=== PATIENT | female | born 1980 | race Caucasian/White ===

== ENCOUNTER 2021-01-22 10:50 | Outpatient (REF) | payer OTHER, SELFPAY ==
--- NOTE | ~2021-01-22 | XR_ITS ---
EXAMINATION: XR CHEST CLINICAL INFORMATION: Cough COMPARISON: None TECHNIQUE: 2 views of the chest were obtained. FINDINGS: No significant abnormality is noted involving the heart, lungs, mediastinum, bony thorax or soft tissues. XR/XR chest 2V IMPRESSION: Unremarkable examination.
== END 2021-01-22 10:51 | disposition home or self-care (01) ==
LOC: HO.HMGCX 10:50
PROVIDERS: Visit Provider Nurse Practitioner Family
DX: Z13.89 Encounter for screening for other disorder (principal)
CPT/HCPCS: 71046

== ENCOUNTER 2024-02-12 12:25 | Outpatient (AMB) | payer OTHER, SELFPAY ==
--- NOTE | 2024-02-12 12:26 | MHC.OFFWIV ---
Intake Vital Signs 02/12/24 12:29 Weight 136 lb BP 112/70 Blood Pressure Location Lt brachial Position Sitting Pulse 70 Pulse Source Pulse Oximeter Pulse Oximetry (%) 100 Oxygen Delivery Method Room Air Intake Visit Reasons: Swollen eye and red Intake Note: Patient here for swollen right eye since yesterday, she mentioned she woke up w/eye sealed shut and has discharge Patient Tobacco Use Status: Never used Tobacco Allergies No Known Allergies Allergy (Verified 02/12/24 12:31) Do you need a note to return to daycare/school/sports/work: No HPI Swollen eye and red HPI Details This note is constructed using voice recognition software. While every effort has been made to ensure accuracy, van owner operator errors may have been included. The patient is a 43 year old female who presents to the clinic today with bilateral, right more than left eye irritation, discharge, and eyelid swelling. She denies any difficulty with vision. She denies fever, chills, cough, shortness of breath. Her child did have an eye infection last week, and she did try using some of her child eyedrops but that did not seem to help. She does not wear contacts. [facility] Social History Patient Tobacco Use Status: Never used Tobacco Review of Systems Const All systems reviewed & are unremarkable except as noted in HPI and below Physical Exam Vital Signs: Last Vital Signs Pulse 70 02/12/24 12:29 BP 112/70 02/12/24 12:29 Pulse Ox 100 02/12/24 12:29 Oxygen Delivery Method Room Air 02/12/24 12:29 Const General: cooperative, healthy appearing, comfortable and no acute distress Orientation/consciousness: patient oriented x3 Limitations: no limitations HEENT Head: Yes normal to inspection Ears: hearing grossly normal bilaterally, external ears normal and TM's normal bilaterally General nose exam: Normal external nose present, Normal nares present and No nasal discharge present Face and sinus: Yes normal facial exam and Yes sinuses nontender Mouth: Normal oral and palatal mucosa present and moist mucous membranes Throat: Yes posterior oropharynx normal, Yes tonsils normal and Yes uvula midline Eyes Eyelids: Yes eyelid abnormality (slight edema upper lid on right) Conjunctivae: conjunctival abnormal right conjunctival injection and discharge purulent and left conjunctival injection EOM: EOMs intact bilaterally Neck Neck: Yes normal visual inspection Resp Effort & Inspection: normal respiratory effort, able to speak in complete sentences, Actively coughing, no respiratory distress, not tachypneic, no tripod positioning and no use of accessory muscles Auscultation: clear to auscultation bilaterally Cardio Jugular venous distension: no JVD Rate: regular rate Rhythm: regular rhythm Heart sounds: S1 normal heart sound present, S2 normal heart sound present, no click, no gallops, no murmurs and no rubs Skin General skin exam: no rashes or lesions noted, elasticity normal and turgor normal Neuro General: patient oriented x3 Extrem General: Yes normal to inspection and Yes no clubbing, cyanosis or edema Assessment & Plan Assessment & Plan (1) Conjunctivitis: Code(s): H10.9 - Unspecified conjunctivitis Qualifiers: Conjunctivitis type: acute Acute conjunctivitis type: bacterial Laterality: bilateral Qualified Code(s): H10.33 - Unspecified acute conjunctivitis, bilateral Plan: Advised good hand hygiene, avoidance of work today. Erythromycin ointment prescribed. Advised patient to follow up with any new onset visual disturbance, or worsening symptoms. Plan See above for full details and plan. Medications: New erythromycin 0.5 inches ophthalmic (eye) TID 7 days 3.5 grams 0RF Coding Level of Care Code Est Pt Level 3 (40401) Diagnoses Acute bacterial conjunctivitis of both eyes H10.33 Conjunctivitis type: acute Acute conjunctivitis type: bacterial Laterality: bilateral
[2024-02-12 12:29] VITALS: BP 112/70; PULSE 70; O2SAT 100
--- OUTSIDE RECORDS SUMMARY | 2024-02-18 06:13 | XMS_ITS | Continuity of Care Document ---
Author Organization [facility] Address Unknown Care Team Providers Care Brands Editor Name Role Phone Kaila Cordova DO Primary Care Diego gonzalez En[place] [facility] Date(s): 03/08/21 - 04/08/21 [facility] Attending Physician: Not on Staff, Attending MD Referring Physician: Kaila Cordova DO Allergies, Adverse Reactions, Alerts Substance Reaction Severity Status NKA Active Immunizations Given and Recorded Vaccine Date Status Refusal Reason tetanus/diphtheria/pertussis, acel(Tdap) 1 08/06/19 Given influenza virus vaccine, inactivated 04/12/19 Give n influenza virus vaccine, inactivated 2 04/27/07 Gi gwen 1Result Comment: Given without difficulty. Guerrero RN 2Admin Note: manufact =[employer] Medications docusate sodium 100 mg oral capsule 1 capsule = 100 mg, By Mouth, 2 times a day, # 60 capsule, 0 Refills, Maintenance, 09/25/19 12:43:00 EDT, Capsule, [id number], 155, cm, 09/25/19 10:47:00 EDT, Height, 68.6, kg, 09/21/19 18:39:00 EDT, Dry Weight Start Date: 09/25/19 Status: Ordered ferrous sulfate 325 mg oral enteric coated tablet 325 mg, 1, tablet, By Mouth, 2 times a day, # 60 tablet, Refills 3, Tot. Refills 3, Maintenance, 04/12/19 15:53:35 EDT, Route to Pharmacy Electronically, [id number], [id number] Start Date: 04/12/19 Stop Date: 2/11/20 Status: Ordered Loestrin 21 07/19 20 mcg-1 mg oral tablet 1 tablet, By Mouth, Daily, # 28 tablet, 1 Refills, Maintenance, 02/21/21 18:45:00 EDT, Tablet, [id number], Partial fill upon patient request if the prescription is for a schedule II opioid drug., 1 tablet By Mouth Daily, 152.4, cm, 02/15/21 9:... Start Date: 02/21/21 Status: Ordered Multivitamins with Folic Acid 1 mg oral capsule See Instructions, TAKE ONE DAILY BY MOUTH, # 100 tablet, 2 Refills, Maintenance, 04/16/19 16:07:13 EDT, TAKE ONE DAILY BY MOUTH Start Date: 04/16/19 Status: Ordered Problem List Condition Effective Dates Status Health Status Inform ant Elevated glucose tolerance test(Confirmed) Active Achalasia of esophagus(Confirmed) Active Anemia(Confirmed) Active Anxiety(Confirmed) Active delivery delivered 2007(Confirmed) Active Social History Social History Type Response Smoking Status Never (less than 100 in lifetime) entered on: 04/12/19 Sex Female
--- OUTSIDE RECORDS SUMMARY | 2024-02-18 06:13 | XMS_ITS | Continuity of Care Document ---
Author Organization [facility] Address [address] [place] [address]- Care Team Providers Care Marketing Teacher Name Role Phone Bailey FerrellmuraliKaila christensen DO Primary Care Diego gonzalez Encounter [facility] Date(s): 09/26/20 - 10/26/20 [facility] [address] [place] [id number] Allergies, Adverse Reactions, Alerts Substance Reaction Severity [...] Refills, Maintenance, 09/25/19 12:43:00 EDT, Capsule, [id number], 155, cm, 09/25/19 10:47:00 EDT, Height, 68.6, kg, 09/21/19 18:39:00 EDT, Dry Weight Start Date: 09/25/19 Status: Ordered ferrous sulfate 325 mg oral enteric coated tablet 325 mg, 1, tablet, By Mouth, 2 times a day, # 60 tablet, Refills 3, Tot. Refills 3, Maintenance, 04/12/19 15:53:35 EDT, Route to Pharmacy Electronically, [id number], [id number] Start Date: 04/12/19 Stop Date: 08/10/19 Status: Ordered Loestrin 07/19 20 mcg-1 mg oral tablet 1 tablet, By Mouth, Daily, # 28 tablet, 3 Refills, Maintenance, 09/19/20 20:26:00 EDT, Tablet, [facility]/pharmacy #[id number], Partial fill upon patient request if the prescription is for a schedule II opioid drug., 1 tablet By Mouth Daily, 155, cm, 09/19/20 20:2... Start Date: 09/19/20 Status: Ordered Multivitamins with Folic Acid 1 mg oral capsule See Instructions, TAKE ONE DAILY BY MOUTH, # 100 tablet, 2 Refills, Maintenance, 04/16/19 16:07:13 EDT, TAKE ONE DAILY BY MOUTH Start Date: 04/16/19 Status: Ordered Problem List Condition Effective Dates Status Health Status Inform ant Elevated glucose tolerance test(Confirmed) Active Anemia(Confirmed) Active Anxiety(Confirmed) Active delivery delivered 2007(Confirmed) Active Social History Social History Type Response Smoking Status Never (less than 100 in lifetime) entered on: 04/12/19 Sex Female
--- OUTSIDE RECORDS SUMMARY | 2024-02-18 06:13 | XMS_ITS | Continuity of Care Document ---
Author Organization [facility] Address [address] [address]- Care Team Providers Care Local Sales Associate Name Role Phone Bailey katfederico Kaila Primary Care Diego gonzalez Encounter [facility] Date(s): 04/01/23 - 05/01/23 [facility] and [facility] [address] [address]- Attending Physician: Sherrie Stewart Admitting Physician: Sherrie Stewart Referring Physician: AdmtrSherrie Allergies, Adverse Reactions, Alerts No Known Allergies Immunizations Given and Recorded Vaccine Date Status Refusal Reason tetanus/diphtheria/pertussis, acel(Tdap) 1 08/06/19 Given influenza virus vaccine, inactivated 04/12/19 Give n influenza virus vaccine, inactivated 2 04/27/07 Gi gwen 1Result Comment: Given without difficulty. JENNA Masters 2Admin Note: manufact =[employer] Medications docusate sodium 100 mg oral capsule 1 capsule = 100 mg, By Mouth, 2 times a day, # 60 capsule, 0 Refills, Maintenance, 09/25/19 12:43:00 EDT, Capsule, [id number], 155, cm, 09/25/19 10:47:00 EDT, Height, 68.6, kg, 09/21/19 18:39:00 EDT, Dry Weight Start Date: 09/25/19 Status: Ordered ferrous sulfate 325 mg oral enteric coated tablet 325 mg, 1, tablet, By Mouth, 2 times a day, # 60 tablet, Refills 3, Tot. Refills 3, Maintenance, 04/12/19 15:53:35 EDT, Route to Pharmacy Electronically, [id number], [id number] Start Date: 04/12/19 Stop Date: 08/10/19 Status: Ordered Loestrin 07/19 20 mcg-1 mg oral tablet 1 tablet, By Mouth, Daily, # 28 tablet, 11 Refills, Maintenance, 04/23/21 17:25:00 EDT, Tablet, [id number], Partial fill upon patient request if the prescription is for a schedule II opioid drug., 1 tablet By Mouth Daily, 152.4, cm, 04/10/21 1... Start Date: 04/23/21 Status: Ordered Multivitamins with Folic Acid 1 mg oral capsule See Instructions, TAKE ONE DAILY BY MOUTH, # 100 tablet, 2 Refills, Maintenance, 04/16/19 16:07:13 EDT, TAKE ONE DAILY BY MOUTH Start Date: 04/16/19 Status: Ordered Problem List Condition Confirmation Course Effective Dates Status Health St atus Informant Elevated glucose tolerance test Confirmed Active Achalasia of esophagus Confirmed Active Anemia Confirmed Active Anxiety Confirmed Active delivery delivered 2007 Confirmed Active Social History Social History Type Response Smoking Status Never (less than 100 in lifetime) entered on: 04/12/19 Sex Female Patient Care team information Care Team Personnel Name: Cyndee Perales RN Position: [facility] RN Member Role: Primary Care Nurse Name: Kaila Cordova DO Position: [facility] Physician - Primary Care Member Role: PCP Address: Address: [address] [place] [address]- Care Team Related Persons Name: ZURI VIDES Address: [id number] Address: home [address] [address] [place] Name: BRUCE REILLY Address: home [address] [address] Name: OPAL TAY Address: [address] [address]
--- OUTSIDE RECORDS SUMMARY | 2024-02-18 06:13 | XMS_ITS | Continuity of Care Document ---
Author Organization [facility] Address [address] [place] [address]- Care Team Providers Care Hospitalist Program Director Name Role Phone Teochristopher Kaila Phillips DO Primary Care Diego gonzalez Encounter [facility] Date(s): 02/18/20 - 03/19/[address] [address]- [facility] Attending Physician: Sherrie Stewart Admitting Physician: AdmSherrie vidales Referring Physician: AdmtrSherrie Allergies, Adverse Reactions, Alerts Substance Reaction Severity [...] 04/12/19 15:53:35 EDT, Route to Pharmacy Electronically, [id number], [id number] Start Date: 04/12/19 Stop Date: 08/10/19 Status: Ordered Multivitamins with Folic Acid 1 [...]
--- OUTSIDE RECORDS SUMMARY | 2024-02-18 06:13 | XMS_ITS | Continuity of Care Document ---
Author Organization [facility] Address [address] [address]- Care Team Providers Care Labor And Delivery Registered Nurse Name Role Phone Kaila Cordova DO Primary Care Diego gonzalez Encounter [facility] [place] Date(s): 09/27/19 - 12/08/19 [facility] [address] [address]- [facility] Attending Physician: Not on Staff, Attending MD Admitting Physician: Kimani REYES, Natalie Domingo Referring Physician: Renea Patel CNM Allergies, Adverse Reactions, Alerts Substance Reaction Severity [...] 04/12/19 15:53:35 EDT, Route to Pharmacy Electronically, [id number], [id number] Start Date: 04/12/19 Stop Date: [...]
--- OUTSIDE RECORDS SUMMARY | 2024-02-18 06:13 | XMS_ITS | Continuity of Care Document ---
Author Organization [facility] Address [address] [place] [address]- Care Team Providers Care Remedy Developer Name Role Phone Bailey Ferrellfederico Kaila CHAVEZ Primary Care Diego gonzalez Encounter [facility] Date(s): 04/26/21 - 08/25/[address] [email or web address] Attending Physician: Bhargavi Middleton CNM Admitting Physician: Bharagvi Middleton CNM Referring Physician: Bhargavi Middleton CNM Allergies, Adverse Reactions, Alerts No Known Allergies [...] 04/12/19 15:53:35 EDT, Route to Pharmacy Electronically, [id number], [id number] Start Date: 04/12/19 Stop Date: 08/10/19 Status: Ordered Loestrin 07/19 20 mcg-1 mg oral tablet 1 tablet, By Mouth, Daily, # 28 tablet, 11 Refills, Maintenance, 04/23/21 17:25:00 EDT, Tablet, [facility]/pharmacy #[id number], Partial fill upon patient request if the [...]
--- OUTSIDE RECORDS SUMMARY | 2024-02-18 06:13 | XMS_ITS | Continuity of Care Document ---
Author Organization [facility] Nathalie lalas [facility] Address [address] [facility] [place] [address]- Care Team Providers Care Program Schedule Clerk Name Role Phone Kaila Cordova DO Primary Care Diego gonzalez En[facility] [id number] Date(s): 07/16/19 - [facility] [address] [facility] [place] [address]- Attending Physician: Sherrie Stewart Admitting Physician: Sherrie Stewart Referring Physician: AdmtrSherrie Allergies, Adverse Reactions, Alerts Substance Reaction Severity Status NKA Active Immunizations Given and Recorded Vaccine Date Status Refusal Reason influenza virus vaccine, inactivated 04/12/19 Give n influenza virus vaccine, inactivated 1 04/27/07 Gi gwen 1Admin Note: manufact =[employer] Medications ferrous sulfate 325 mg oral enteric coated tablet 325 mg, 1, tablet, By Mouth, 2 times a day, # 60 tablet, Refills 3, Tot. Refills 3, Maintenance, 04/12/19 15:53:35 EDT, Route to Pharmacy Electronically, [id number], [facility]/pharmacy #[id number] Start Date: 04/12/19 Stop Date: 08/10/19 [...]
--- OUTSIDE RECORDS SUMMARY | 2024-02-18 06:13 | XMS_ITS | Continuity of Care Document ---
Author Organization [facility] Address [address] [place] [address]- Care Team Providers Care Robotic Welder Name Role Phone Bailey Kaila Phillips DO Primary Care Diego gonzalez Encounter [facility] Date(s): 02/07/20 - 03/26/[address] [address]- [facility] Attending Physician: Pilar Neal CNM Admitting Physician: Pilar Neal CNM Allergies, Adverse Reactions, Alerts Substance Reaction [...] 04/12/19 15:53:35 EDT, Route to Pharmacy Electronically, [id number], [id number] Start Date: 04/12/19 Stop Date: [...]
--- OUTSIDE RECORDS SUMMARY | 2024-02-18 06:13 | XMS_ITS | Continuity of Care Document ---
Author Organization [facility] Address [address] [address]- Care Team Providers Care Cotton Ginner Helper Name Role Phone Bailey katfederico Kaila Primary Care Diego gonzalez En[facility] Date(s): 07/25/20 - 09/13/20 [facility] [address] [address] Attending Physician: Not on Staff, Attending MD Referring Physician: Not on Staff, Referring MD Allergies, Adverse Reactions, Alerts Substance Reaction Severity [...] Refills, Maintenance, 09/25/19 12:43:00 EDT, Capsule, [id number], 155, cm, 09/25/19 10:47:00 EDT, Height, 68.6, kg, 09/21/19 18:39:00 EDT, Dry Weight Start Date: 09/25/19 Status: Ordered ferrous sulfate 325 mg oral enteric coated tablet 325 mg, 1, tablet, By Mouth, 2 times a day, # 60 tablet, Refills 3, Tot. Refills 3, Maintenance, 04/12/19 15:53:35 EDT, Route to Pharmacy Electronically, [id number], [id number] Start Date: 04/12/19 Stop Date: 08/10/19 Status: [...]
--- OUTSIDE RECORDS SUMMARY | 2024-02-18 06:13 | XMS_ITS | Continuity of Care Document ---
Author Organization [facility] Address [address] [place] [address] [address] [place] [address]- Care Team Providers Care Dishcloth Folder Name Role Phone Kaila Cordova DO Primary Care Diego gonzalez [place] [facility] Date(s): 09/19/20 - 12/29/[address] [place] [address]- Encounter Diagnosis Achalasia of esophagus(Discharge Diagnosis) - 11/29/20 Attending Physician: Nikita Galvan MD Referring Physician: Kaila Cordova DO Allergies, [...] 04/12/19 15:53:35 EDT, Route to Pharmacy Electronically, [id number], [id number] Start Date: 04/12/19 Stop Date: 08/10/19 Status: Ordered Loestrin 07/19 20 mcg-1 mg oral tablet 1 tablet, By Mouth, Daily, # 28 tablet, 3 Refills, Maintenance, 09/19/20 20:26:00 EDT, Tablet, [id number], Partial fill upon [...] Active Anxiety(Confirmed) Active delivery delivered 2007(Confirmed) Active Diagnosis Diagnosis Type Effective Dates Health Status Cl inical Service Informant Achalasia of esophagus Discharge Diagnosis 11/29/20 Vital Signs Most recent to oldest [Reference Range]: 1 Height 155 cm (11/29/20 4:31 PM) Weight 62.8 kg (11/29/20 4:31 PM) Pulse Rate [55-90 bpm] 68 bpm (11/29/20 4:31 PM) Body Mass Index [18.5-24.99] 26.14 *H* (11/29/20 4:31 PM) Blood Pressure [90-138/55-84 mm Hg] 124/ 79mm Hg (11/29/20 4:31 PM) Respiratory Rate [16-30 br/min] 16 br/mi n (11/29/20 4:31 PM) Temperature [96.8-100.4 DegF] 97.3 DegF (11/29/20 4:31 PM) Blood pressure sites Arm, right (11/29/20 4:31 PM) Temperature Route Temporal (11/29/20 4:31 PM) Weight Obtained Via Standing scale (11/29/20 4:31 PM) Social History Social History Type Response Smoking Status Never (less than 100 in lifetime) entered on: 04/12/19 Sex Female
--- OUTSIDE RECORDS SUMMARY | 2024-02-18 06:13 | XMS_ITS | Continuity of Care Document ---
Author Organization [facility] Address [address] [place] [address]- Care Team Providers Care Stem Mounter Name Role Phone Not on Staff, PCP Primary Care Physician Unavail able Encounter [facility] Date(s): 02/15/21 - 02/15/[address] [address] Discharge Disposition: A-D/C Home Attending Physician: Zac Pulliam MD Admitting Physician: Zac Pulliam MD Referring Physician: Zac Pulliam MD Allergies, Adverse Reactions, Alerts Substance Reaction [...] Refills, Maintenance, 09/25/19 12:43:00 EDT, Capsule, [id number], 155, cm, 09/25/19 10:47:00 EDT, Height, 68.6, kg, 09/21/19 18:39:00 EDT, Dry Weight Start Date: 09/25/19 Status: Ordered ferrous sulfate 325 mg oral enteric coated tablet 325 mg, 1, tablet, By Mouth, 2 times a day, # 60 tablet, Refills 3, Tot. Refills 3, Maintenance, 04/12/19 15:53:35 EDT, Route to Pharmacy Electronically, [id number], [id number] Start Date: 04/12/19 Stop Date: 2/11/20 Status: Ordered Loestrin 21 07/19 20 mcg-1 mg oral tablet 1 tablet, By Mouth, Daily, # 28 tablet, 3 Refills, Maintenance, 09/19/20 20:26:00 EDT, Tablet, [id number], Partial fill upon patient request if the [...] Active Anxiety(Confirmed) Active delivery delivered 2007(Confirmed) Active Procedures Procedure Date Related Diagnosis Body Site Status Upper gastrointestinal endoscopy 02/15/21 Completed Vital Signs Most recent to oldest [Reference Range]: 1 2 3 Height 152.4 cm (02/15/21 9:07 AM) Oxygen Saturation [94-100 %] 100 % (02/15/21 10:20 AM) 100 % (02/15/21 10:09 AM) 99 % (02/15/21 9:07 AM) Pulse Rate [55-90 bpm] 79 bpm (02/15/21 9:07 AM) Blood Pressure [90-138/55-84 mm Hg] 113/69mm Hg (02/15/21 10:20 AM) 102/62mm Hg (02/15/21 10:09 AM) 118/64mm Hg (02/15/21 9:07 AM) Respiratory Rate [16-30 br/min] 21 br/min (02/15/21 10:20 AM) 18 br/min (02/15/21 10:09 AM) 20 br/min (02/15/21 9:07 AM) Temperature [96.8-100.4 DegF] 97.9 DegF (02/15/21 9:07 AM) Mode of Delivery (Oxygen) Room air (02/15/21 10:20 AM) Room air (02/15/21 10:09 AM) Room air (02/15/21 9:07 AM) Blood pressure sites Arm, left (02/15/21 10:20 AM) Arm, left (02/15/21 10:09 AM) Arm, left (02/15/21 9:07 AM) Temperature Route Temporal (02/15/21 9:07 AM) Dry Weight 61.7 kg (02/15/21 9:07 AM) Dry Weight Obtained Via Patient/family s tated (02/15/21 9:07 AM) Social History Social History Type Response Smoking Status Never (less than 100 in lifetime) entered on: 04/12/19 Sex Female
--- OUTSIDE RECORDS SUMMARY | 2024-02-18 06:13 | XMS_ITS | Continuity of Care Document ---
Author Organization [facility] Address [address] [place] [address] Dr [address] [place] [address]- Care Team Providers Care Process Helper Name Role Phone Kaila Cordova DO Primary Care Diego gonzalez [facility]counter [facility] Date(s): 11/29/20 - 12/29/20 [facility] [address] [place] [address]- Attending Physician: AdmtrSherrie Admitting Physician: Admtr, Ar8 Referring Physician: Admtr, Ar8 Allergies, Adverse Reactions, Alerts Substance Reaction Severity Status NKA Active Immunizations Given and Recorded Vaccine Date Status Refusal Reason tetanus/diphtheria/pertussis, acel(Tdap) 1 08/06/19 Given influenza virus vaccine, inactivated 04/12/19 Give n influenza virus vaccine, inactivated 2 04/27/07 Gi gwen 1Result Comment: Given without difficulty. Guerrero, RN 2Admin Note: manufact =[employer]ofi Medications docusate sodium 100 mg oral capsule 1 capsule = 100 mg, By Mouth, 2 times a day, # 60 capsule, 0 Refills, Maintenance, 09/25/19 12:43:00 EDT, Capsule, [id number], 155, cm, 09/25/19 10:47:00 EDT, Height, 68.6, kg, 09/21/19 18:39:00 EDT, Dry Weight Start Date: 09/25/19 Status: Ordered ferrous sulfate 325 mg oral enteric coated tablet 325 mg, 1, tablet, By Mouth, 2 times a day, # 60 tablet, Refills 3, Tot. Refills 3, Maintenance, 04/12/19 15:53:35 EDT, Route to Pharmacy Electronically, [id number], [id number] Start Date: 04/12/19 Stop Date: 08/10/19 Status: Ordered Loestrin 07/19 20 mcg-1 mg oral tablet 1 tablet, By Mouth, Daily, # 28 tablet, 3 Refills, Maintenance, 09/19/20 20:26:00 EDT, Tablet, [facility]/pharmacy #[id number], Partial fill upon patient request if the [...]
--- OUTSIDE RECORDS SUMMARY | 2024-02-18 06:13 | XMS_ITS | Continuity of Care Document ---
Author Organization [facility] Address [address] [address]- Care Team Providers Care Artistic Director Name Role Phone Kaila Cordova DO Primary Care Diego gonzalez Encounter [facility] Date(s): 02/07/23 - 05/01/23 [facility] [address] [address]- Attending Physician: Not on Staff, Attending MD Referring Physician: Kaila Cordova DO Allergies, Adverse Reactions, Alerts No Known Allergies [...] 04/12/19 15:53:35 EDT, Route to Pharmacy Electronically, [id number], [id number] Start Date: 04/12/19 Stop Date: [...] Team Personnel Name: Cyndee Perales RN Position: [facility] SN RN Member Role: Primary Care Nurse Name: Kaila Cordova DO Position: [facility] Physician - Primary Care Member Role: PCP Address: Address: [address] [place] [address]- Care Team Related Persons Name: ZURI VIDES Address: [address] Address: [address] [address] [place] Name: BRUCE REILLY Address: home [address] [address] Name: OPAL TAY Address: [address] [address]
--- OUTSIDE RECORDS SUMMARY | 2024-02-18 06:13 | XMS_ITS | Continuity of Care Document ---
Author Organization [facility] Address Unknown Care Team Providers Care Military Analyst Name Role Phone Kaila Cordova DO Primary Care Diego gonzalez [facility] Date[facility]s): 03/09/21 - 04/08/21 [facility] Attending Physician: AdmSherrie vidales Admitting Physician: AdmtrSherrie Referring Physician: Admtr, Ar8 Allergies, Adverse Reactions, [...] Refills, Maintenance, 09/25/19 12:43:00 EDT, Capsule, [id number], 155, cm, 09/25/19 10:47:00 EDT, Height, 68.6, kg, 09/21/19 18:39:00 EDT, Dry Weight Start Date: 09/25/19 Status: Ordered ferrous sulfate 325 mg oral enteric coated tablet 325 mg, 1, tablet, By Mouth, 2 times a day, # 60 tablet, Refills 3, Tot. Refills 3, Maintenance, 04/12/19 15:53:35 EDT, Route to Pharmacy Electronically, [id number], [id number] Start Date: 04/12/19 Stop Date: 08/10/19 Status: Ordered Loestrin 21 07/19 20 mcg-1 mg oral tablet 1 tablet, By Mouth, Daily, # 28 tablet, 1 Refills, Maintenance, 02/21/21 18:45:00 EDT, Tablet, [facility]/pharmacy #[id number], Partial fill upon patient request if the [...]
--- OUTSIDE RECORDS SUMMARY | 2024-02-18 06:13 | XMS_ITS | Continuity of Care Document ---
Author Organization [facility] Nathalie pierces [facility] Address [address] [address], 4t [place] [address]- Care Team Providers Care Laminating Machine Operator Name Role Phone Kaila Cordova DO Primary Care Diego gonzalez Encounter [facility] [place] ACCT R [id number] Date(s): 09/21/19 - 09/28/19 [facility] [facility] [address], 4th [place] [address]- Attending Physician: Rosalia Mendez MD Referring Physician: Federica Kumari MD Allergies, Adverse Reactions, Alerts Substance Reaction Severity Status NKA Active Immunizations Given and Recorded Vaccine Date Status Refusal Reason tetanus/diphtheria/pertussis, acel(Tdap) 1 08/06/19 Given influenza virus vaccine, inactivated 04/12/19 Give n influenza virus vaccine, inactivated 2 04/27/07 Gi gwen 1Result Comment: Given without difficulty. Guerrero RN 2Admin Note: manufact =[employer]i Medications acetaminophen 325 mg oral tablet 650 mg, By Mouth, Every 4 hours, not to exceed 4000 mg/day, # 50 tablet, Refills 0, Tot. Refills 0,Acute 10/27/19 12:44:00 EDT, 09/25/19 12:43:00 EDT, Route to Pharmacy Electronically, [id number], 155, cm, 09/25/19 10:47:00 EDT, Height, 68.6,... Start Date: 09/25/19 Stop Date: 10/27/19 Status: Ordered docusate sodium 100 mg oral capsule 1 [...] 04/12/19 15:53:35 EDT, Route to Pharmacy Electronically, [id number], [facility]/pharmacy #[id number] Start Date: 04/12/19 Stop Date: 08/10/19 Status: Ordered ibuprofen 800 mg oral tablet 800 mg, 1, tablet, By Mouth, Every 8 hours, not to exceed 3200 mg/day with food or milk, # 40 tablet, Refills 0, Tot. Refills 0, Acute 10/27/19 12:44:00 EDT, 09/25/19 12:43:00 EDT, [facility], [facility], cm, 09/24/... Start Date: 09/25/19 Stop Date: 10/27/19 Status: Ordered oxyCODONE 5 mg oral tablet 5 mg, 1, tablet, By Mouth, Every 6 hours, PRN, # 10 tablet, Refills 0, Tot. Refills 0, Acute 10/27/19 12:43:00 EDT, Pain , Severe, 09/25/19 12:43:00 EDT, [facility] fill upon patient request, 155, cm,... Start Date: 09/25/19 Stop Date: 10/27/19 Status: Ordered Multivitamins with Folic Acid 1 mg oral capsule See Instructions, TAKE ONE DAILY BY MOUTH, # 100 tablet, 2 Refills, Maintenance, 04/16/19 16:07:13 EDT, TAKE ONE DAILY BY MOUTH Start Date: 04/16/19 Status: Ordered simethicone 80 mg oral tablet, chewable 80 mg, Chew, 3 times a day, PRN, # 48 tablet, Refills 0, Tot. Refills 0, Acute 10/27/19 12:43:00 EDT, Gas, 09/25/19 12:43:00 EDT, Route to Pharmacy Electronically, [facility]/pharmacy #[id number], 155, cm, 09/25/19 10:47:00 EDT, Height, 68.6, kg, 09/21/19 18:39:00... Start Date: 09/25/19 Stop Date: 10/27/19 Status: Ordered Problem List Condition Effective Dates Status Health Status Inform ant Elevated glucose tolerance test(Confirmed) Active Anemia(Confirmed) Active Anxiety(Confirmed) Active delivery delivered 2007(Confirmed) Active Social History Social History Type Response Smoking Status Never (less than 100 in lifetime) entered on: 04/12/19 Sex
--- OUTSIDE RECORDS SUMMARY | 2024-02-18 06:13 | XMS_ITS | Continuity of Care Document ---
Author Organization [facility] Address [address] [place] [address]- Care Team Providers Care Animal Trapper Name Role Phone Kaila Cordova DO Primary Care Diego gonzalez Encounter [facility] [place] [place] ACCT R [id number] Date(s): 08/27/19 - 09/06/19 [facility] [address] [place] [address]- [place] Attending Physician: Sherrie Stewart Admitting Physician: AdmtrSherrie Referring Physician: Admtr, Ar8 Allergies, Adverse Reactions, Alerts Substance Reaction Severity Status NKA Active Immunizations Given and Recorded Vaccine Date Status Refusal Reason tetanus/diphtheria/pertussis, acel(Tdap) 1 08/06/19 Given influenza virus vaccine, inactivated 04/12/19 Give n influenza virus vaccine, inactivated 2 04/27/07 Gi gwen 1Result Comment: Given without difficulty. Guerrero RN 2Admin Note: manufact =Sanofi Medications ferrous sulfate 325 mg oral enteric coated tablet 325 mg, 1, tablet, By Mouth, 2 times a day, # 60 tablet, Refills 3, Tot. Refills 3, Maintenance, 04/12/19 15:53:35 EDT, Route to Pharmacy Electronically, [id number], [facility]/pharmacy #[id number] Start Date: 04/12/19 Stop Date: [...]
--- OUTSIDE RECORDS SUMMARY | 2024-02-18 06:13 | XMS_ITS | Continuity of Care Document ---
Author Organization [facility] Address Unknown Care Team Providers Care Title 1 Tutor Name Role Phone Bailey FerrellmuraliKaila christensen DO Primary Care Diego gonzalez Encounter [facility] [place] Date(s): 03/01/21 - 03/31/21 [facility] Allergies, Adverse Reactions, Alerts Substance Reaction Severity [...] 0 Refills, Maintenance, 09/25/19 12:43:00 EDT, Capsule, [facility]/pharmacy #2339, 155, cm, 09/25/19 10:47:00 EDT, Height, 68.6, kg, 09/21/19 18:39:00 EDT, Dry Weight Start Date: 09/25/19 Status: Ordered ferrous sulfate 325 mg oral enteric coated tablet 325 mg, 1, tablet, By Mouth, 2 times a day, # 60 tablet, Refills 3, Tot. Refills 3, Maintenance, 04/12/19 15:53:35 EDT, Route to Pharmacy Electronically, [id number], [facility] Start Date: 04/12/19 Stop Date: 08/10/19 Status: Ordered Loestrin 21 07/19 20 mcg-1 mg oral tablet 1 tablet, By Mouth, Daily, # 28 tablet, 1 Refills, Maintenance, 02/21/21 18:45:00 EDT, Tablet, [facility]/pharmacy #[id number], Partial fill upon patient request if the [...]
--- OUTSIDE RECORDS SUMMARY | 2024-02-18 06:13 | XMS_ITS | Continuity of Care Document ---
Author Organization [facility] Address [address] [address]- Care Team Providers Care Laminator Preforms Name Role Phone Kaila Cordova DO Primary Care Diego gonzalez [place] [facility] [place] [place] Date(s): 11/08/19 - 12/08/19 [facility] [address] [address]- [facility] Attending Physician: Sherrie Stewrat Admitting Physician: Sherrie Stewart Referring Physician: AdmtrSherrie [...] 04/12/19 15:53:35 EDT, Route to Pharmacy Electronically, [id number], [id number] Start Date: 04/12/19 Stop Date: [...]
--- OUTSIDE RECORDS SUMMARY | 2024-02-18 06:13 | XMS_ITS | Continuity of Care Document ---
Author Organization [facility] Address [address] [place] [address]- Care Team Providers Care Trimmer Sawyer Name Role Phone Bailey Kaila Phillips DO Primary Care Diego gonzalez Encounter [facility] Date(s): 09/07/20 - 10/07/[address] [address]- Allergies, Adverse Reactions, Alerts Substance Reaction Severity [...] Refills, Maintenance, 09/25/19 12:43:00 EDT, Capsule, [facility], 155, cm, 09/25/19 10:47:00 EDT, Height, 68.6, kg, 09/21/19 18:39:00 EDT, Dry Weight Start Date: 09/25/19 Status: Ordered ferrous sulfate 325 mg oral enteric coated tablet 325 mg, 1, tablet, By Mouth, 2 times a day, # 60 tablet, Refills 3, Tot. Refills 3, Maintenance, 04/12/19 15:53:35 EDT, Route to Pharmacy Electronically, [id number], [id number] Start Date: 04/12/19 Stop Date: 08/10/19 Status: Ordered Loestrin 07/19 20 mcg-1 mg oral tablet 1 tablet, By Mouth, Daily, # 28 tablet, 3 Refills, Maintenance, 09/19/20 20:26:00 EDT, Tablet, [facility], Partial fill upon patient request if the [...]
--- OUTSIDE RECORDS SUMMARY | 2024-02-18 06:13 | XMS_ITS | Continuity of Care Document ---
Author Organization [facility] Address [address] [place] [address]- Care Team Providers Care Road Commissioner Name Role Phone Kaila Cordova DO Primary Care Diego gonzalez En[place] [facility] Date(s): 02/09/20 - 03/29/[address] [address]- [facility] Attending Physician: Not on Staff, Attending MD [...] 04/12/19 15:53:35 EDT, Route to Pharmacy Electronically, [id number], [id number] Start Date: 04/12/19 Stop Date: [...]
--- OUTSIDE RECORDS SUMMARY | 2024-02-18 06:13 | XMS_ITS | Continuity of Care Document ---
Author Organization [facility] [employer] [employer] Address [address] [facility], 4t [place] [address]- Care Team Providers Care Diet Aid Name Role Phone Kaila Cordova DO Primary Care Diego gonzalez En[place] [facility] Date(s): 06/24/19 - 07/01/19 [facility] [address] [facility] [address], 4th [place] [address]- Attending Physician: Tiera REYES, Ricardo Vogt Referring Physician: Beto Rivera CNM Allergies, Adverse Reactions, Alerts Substance Reaction [...] 04/12/19 15:53:35 EDT, Route to Pharmacy Electronically, [id number], [facility]/pharmacy #[id number] Start Date: 04/12/19 Stop Date: 08/10/19 [...]
--- OUTSIDE RECORDS SUMMARY | 2024-02-18 06:13 | XMS_ITS | Continuity of Care Document ---
Author Organization [facility] Address Unknown Care Team Providers Care Furnace Operator Oil [employer] Name Role Phone Bailey FerrellmuraliKaila christensen DO Primary Care Diego gonzalez [place] [facility] 02/20/21 - 03/22/21 [facility] Allergies, Adverse Reactions, Alerts Substance Reaction [...] 0 Refills, Maintenance, 09/25/19 12:43:00 EDT, Capsule, [facility]/pharmacy #2339, 155, cm, 09/25/19 10:47:00 EDT, Height, 68.6, kg, 09/21/19 18:39:00 EDT, Dry Weight Start Date: 09/25/19 Status: Ordered ferrous sulfate 325 mg oral enteric coated tablet 325 mg, 1, tablet, By Mouth, 2 times a day, # 60 tablet, Refills 3, Tot. Refills 3, Maintenance, 04/12/19 15:53:35 EDT, Route to Pharmacy Electronically, [id number], [facility] Start Date: 04/12/19 Stop Date: 08/10/19 Status: Ordered Loestrin 21 07/19 20 mcg-1 mg oral tablet 1 tablet, By Mouth, Daily, # 28 tablet, 1 Refills, Maintenance, 02/21/21 18:45:00 EDT, Tablet, [facility]/pharmacy #3283, Partial fill upon patient request if the [...]
--- OUTSIDE RECORDS SUMMARY | 2024-02-18 06:13 | XMS_ITS | Continuity of Care Document ---
Author Organization [facility] ter Address [address] [place] [address]- Care Team Providers Care Draw Fire Operator Name Role Phone Kaila Cordova DO Primary Care Diego gonzalez [place] [facility] [place] Date(s): 09/21/19 - 09/25/[address] [address]- [facility] Discharge Disposition: A-D/C Home Attending Physician: Amy Walden MD Admitting Physician: Amy Walden MD Referring Physician: Amy Walden MD Allergies, Adverse Reactions, Alerts Substance Reaction [...] 09/25/19 12:43:00 EDT, Route to Pharmacy Electronically, [facility]/pharmacy #2339, 155, cm, 09/25/19 10:47:00 EDT, Height, 68.6,... [...] 04/12/19 15:53:35 EDT, Route to Pharmacy Electronically, [id number], [facility]/pharmacy #[id number] Start Date: 04/12/19 Stop Date: 08/10/19 Status: Ordered ibuprofen 800 mg oral tablet 800 mg, 1, tablet, By Mouth, Every 8 hours, not to exceed 3200 mg/day with food or milk, # 40 tablet, Refills 0, Tot. Refills 0, Acute 10/27/19 12:44:00 EDT, 09/25/19 12:43:00 EDT, [facility] to Pharmacy Electronically, [id number], 155, cm, 09/24/... Start Date: 09/25/19 Stop Date: 10/27/19 Status: Ordered oxyCODONE 5 mg oral tablet 5 mg, 1, tablet, By Mouth, Every 6 hours, PRN, # 10 tablet, Refills 0, Tot. Refills 0, Acute 10/27/19 12:43:00 EDT, Pain , Severe, 09/25/19 12:43:00 EDT, Route to Pharmacy Electronically, [facility], Partial fill upon patient request, [...] 09/25/19 12:43:00 EDT, Route to Pharmacy Electronically, [facility]/pharmacy #2339, 155, cm, 09/25/19 10:47:00 EDT, Height, 68.6, kg, 09/21/19 18:39:00... Start Date: 09/25/19 Stop Date: 10/27/19 Status: Ordered Problem List Condition Effective Dates Status Health Status Inform ant Elevated glucose tolerance test(Confirmed) Active Anemia(Confirmed) Active Anxiety(Confirmed) Active delivery delivered 2007(Confirmed) Active Procedures Procedure Date Related Diagnosis Body Site Status delivery only; 09/22/19 C ompleted Vital Signs Most recent to oldest [Reference Range]: 1 2 3 Height 155 cm (09/25/19 8:39 AM) 155 cm (09/24/19 11:52 PM) 155 cm (09/24/19 4:00 PM) Weight 68.6 kg (09/21/19 6:39 PM) Oxygen Saturation [94-100 %] 98 % (09/25/19 8:39 AM) 97 % (09/24/19 11:52 PM) 97 % (09/24/19 4:00 PM) Pulse Rate [55-90 bpm] 67 bpm (09/25/19 8:39 AM) 72 bpm (09/24/19 11:52 PM) 113 bpm *H* (09/24/19 4:00 PM) Body Mass Index [18.5-24.99] 28.55 *H* (09/21/19 6:39 PM) Blood Pressure [90-138/55-84 mm Hg] 114/74mm Hg (09/25/19 8:39 AM) 105/66mm Hg (09/24/19 11:52 PM) 119/69mm Hg (09/24/19 4:00 PM) Respiratory Rate [16-30 br/min] 18 br/min (09/25/19 10:37 AM) 18 br/min (09/25/19 10:37 AM) 18 br/min (09/25/19 9:37 AM) Temperature [96.8-100.4 DegF] 98.4 DegF (09/25/19 8:39 AM) 97.8 DegF (09/24/19 11:52 PM) 98.0 DegF (09/24/19 4:00 PM) Mode of Delivery (Oxygen) Room air (09/24/19 11:52 PM) Room air (09/24/19 4:00 PM) Room air (09/24/19 8:00 AM) Blood pressure sites Arm, right (09/24/19 11:52 PM) Arm, right (09/24/19 4:00 PM) Arm, right (09/24/19 8:00 AM) Temperature Route Oral (09/25/19 8:39 AM) Oral (09/24/19 11:52 PM) Oral (09/24/19 4:00 PM) Dry Weight 68.6 kg (09/21/19 6:39 PM) Weight Obtained Via Patient/family state d (09/21/19 6:39 PM) Dry Weight Obtained Via Patient/family s tated (09/21/19 6:39 PM) Sensory deficits None (09/21/19 6:39 PM) Mobility assistance Independent (09/21/19 6:39 PM) Social History Social History Type Response Smoking Status Never (less than 100 in lifetime) entered on: 04/12/19 Sex
--- OUTSIDE RECORDS SUMMARY | 2024-02-18 06:13 | XMS_ITS | Continuity of Care Document ---
Author Organization [facility] Address [address] [address]- Care Team Providers Care Family Mediator Name Role Phone Kaila Cordova DO Primary Care Diego gonzalez En[facility] Date(s): 08/06/19 - 09/17/19 [facility] [address] [address]- [facility] Attending Physician: Not on Staff, Attending MD Referring Physician: Pily Solis CNM Allergies, Adverse Reactions, Alerts Substance Reaction [...] 04/12/19 15:53:35 EDT, Route to Pharmacy Electronically, [id number], [facility]/pharmacy #[id number] Start Date: 04/12/19 Stop Date: 08/10/19 Status: [...]
--- OUTSIDE RECORDS SUMMARY | 2024-02-18 06:13 | XMS_ITS | Continuity of Care Document ---
Author Organization [facility] Address Unknown Care Team Providers Care Milk Treater Name Role Phone Bailey Jacqueline CHAVEZ Kaila Primary Care Diego gonzalez En[facility] Date(s): 04/23/21 - 05/23/21 [facility] Allergies, Adverse Reactions, Alerts Substance [...] Refills, Maintenance, 09/25/19 12:43:00 EDT, [facility]apsule, [facility], 155, cm, 09/25/19 10:47:00 EDT, Height, 68.6, kg, 09/21/19 18:39:00 EDT, Dry Weight Start Date: 09/25/19 Status: Ordered ferrous sulfate 325 mg oral enteric coated tablet 325 mg, 1, tablet, By Mouth, 2 times a day, # 60 tablet, Refills 3, Tot. Refills 3, Maintenance, 04/12/19 15:53:35 EDT, Route to Pharmacy Electronically, [id number], [facility]25 Start Date: 04/12/19 Stop Date: 08/10/19 Status: Ordered Loestrin 21 07/19 20 mcg-1 mg oral tablet 1 tablet, By Mouth, Daily, # 28 tablet, 11 Refills, Maintenance, 04/23/21 17:25:00 EDT, Tablet, [facility]/pharm[facility] #0414, Partial fill upon patient request if the [...]
--- OUTSIDE RECORDS SUMMARY | 2024-02-18 06:13 | XMS_ITS | Continuity of Care Document ---
Author Organization [facility] ter Address [address] [place] [address]- Care Team Providers Care Layer Up Name Role Phone Kaila Cordova DO Primary Care Diego gonzalez Encounter [facility] [place] [place] Date(s): 09/25/19 - 01/12/[address] [address]- [facility] Discharge Disposition: A-D/C Home Attending Physician: [...] 04/12/19 15:53:35 EDT, Route to Pharmacy Electronically, [id number], [id number] Start Date: 04/12/19 Stop Date: [...]
--- OUTSIDE RECORDS SUMMARY | 2024-02-18 06:13 | XMS_ITS | Continuity of Care Document ---
Author Organization [facility] ter Address [address] [place] [address]- Care Team Providers Care County Records Management Officer Name Role Phone Kaila Cordova DO Primary Care Diego gonzalez En[place] [facility] [place] Date(s): 08/02/19 - 08/02/[address] [address]- [facility] Attending Physician: Esther Jesus CNM Allergies, Adverse Reactions, Alerts Substance Reaction [...] 04/12/19 15:53:35 EDT, Route to Pharmacy Electronically, [id number], [facility]/pharmacy #[id number] Start Date: 04/12/19 [...]
--- OUTSIDE RECORDS SUMMARY | 2024-02-18 06:13 | XMS_ITS | Continuity of Care Document ---
Author Organization [facility] Address [address] [place] [address]- Care Team Providers Care Pari Mutual Ticket Checker Name Role Phone Bailey Kaila Phillips DO Primary Care Diego gonzalez Encounter [facility] Date(s): 02/03/20 - 03/04/[address] [address]- [facility] Allergies, Adverse Reactions, Alerts Substance Reaction Severity [...] Refills, Maintenance, 09/25/19 12:43:00 EDT, Capsule, [facility], 155, cm, 09/25/19 10:47:00 EDT, Height, 68.6, kg, 09/21/19 18:39:00 EDT, Dry Weight Start Date: 09/25/19 Status: Ordered ferrous sulfate 325 mg oral enteric coated tablet 325 mg, 1, tablet, By Mouth, 2 times a day, # 60 tablet, Refills 3, Tot. Refills 3, Maintenance, 04/12/19 15:53:35 EDT, Route to Pharmacy Electronically, [id number], [id number] Start Date: 04/12/19 Stop Date: 08/10/19 Status: [...]
--- OUTSIDE RECORDS SUMMARY | 2024-02-18 06:13 | XMS_ITS | Continuity of Care Document ---
Author Organization [facility] Address [address] [address]- Care Team Providers Care Supervisor Tunnel Heading Name Role Phone Bailey katfederico Kaila CHAVEZ Primary Care Diego gonzalez [place] [facility] [place] [facility] [address] [address]- [facility] Attending Physician: Monie Pollock CNM Admitting Physician: Monie Pollock CNM Referring Physician: Monie Pollock CNM Allergies, Adverse Reactions, Alerts Substance Reaction Severity Status NKA Active Immunizations Given and Recorded Vaccine Date Status Refusal Reason tetanus/diphtheria/pertussis, acel(Tdap) 1 08/06/19 Given influenza virus vaccine, inactivated 04/12/19 Give n influenza virus vaccine, inactivated 2 04/27/07 Gi gwen 1Result Comment: Given without difficulty. JENNA Masters 2Admin Note: manufact =[employer] Medications acetaminophen 325 mg oral tablet 650 mg, By Mouth, Every 4 hours, not to exceed 4000 mg/day, # 50 tablet, Refills 0, Tot. Refills 0,Acute 10/27/19 12:44:00 EDT, 09/25/19 12:43:00 EDT, Route to Pharmacy Electronically, [facility]/pharmacy #[id number], 155, cm, 09/25/19 10:47:00 EDT, Height, 68.6,... Start Date: 09/25/19 Stop Date: 10/27/19 Status: Ordered docusate sodium 100 mg oral capsule 1 capsule = 100 mg, By Mouth, 2 times a day, # 60 capsule, 0 Refills, Maintenance, 09/25/19 12:43:00 EDT, Capsule, [facility]/pharmacy #[id number], 155, cm, 09/25/19 10:47:00 EDT, Height, 68.6, kg, 09/21/19 18:39:00 EDT, Dry Weight Start Date: 09/25/19 Status: Ordered ferrous sulfate 325 mg oral enteric coated tablet 325 mg, 1, tablet, By Mouth, 2 times a day, # 60 tablet, Refills 3, Tot. Refills 3, Maintenance, 04/12/19 15:53:35 EDT, Route to Pharmacy Electronically, [id number], [facility]/pharmacy #[id number] Start Date: 04/12/19 Stop Date: 08/10/19 Status: Ordered ibuprofen 800 mg oral tablet 800 mg, 1, tablet, By Mouth, Every 8 hours, not to exceed 3200 mg/day with food or milk, # 40 tablet, Refills 0, Tot. Refills 0, Acute 10/27/19 12:44:00 EDT, 09/25/19 12:43:00 EDT, Route to Pharmacy Electronically, [facility]/pharmacy #[id number], 155, cm, ... Start Date: 09/25/19 Stop Date: 10/27/19 Status: Ordered oxyCODONE 5 mg oral tablet 5 mg, 1, tablet, By Mouth, Every 6 hours, PRN, # 10 tablet, Refills 0, Tot. Refills 0, Acute 10/27/19 12:43:00 EDT, Pain , Severe, 09/25/19 12:43:00 EDT, Route to Pharmacy Electronically, [facility]/pharmacy #[id number], Partial fill upon patient request, 155, [...] 09/25/19 12:43:00 EDT, Route to Pharmacy Electronically, [facility]/pharmacy #[id number], 155, cm, 09/25/19 10:47:00 EDT, [...]
--- OUTSIDE RECORDS SUMMARY | 2024-02-18 06:13 | XMS_ITS | Continuity of Care Document ---
Author Organization [facility] Address [address] [place] [address] [address] [place] [address]- Care Team Providers Care Shower Screen Installer Name Role Phone Kaila Cordova DO Primary Care Digeo gonzalez [place] [facility] - 12/06/[address] [place] [address]- Attending Physician: Danny Honeycutt MD Referring Physician: Kaila Cordova DO Allergies, [...] Refills, Maintenance, 09/25/19 12:43:00 EDT, Capsule, [id number], 155, cm, 09/25/19 10:47:00 EDT, Height, 68.6, kg, 09/21/19 18:39:00 EDT, Dry Weight Start Date: 09/25/19 Status: Ordered ferrous sulfate 325 mg oral enteric coated tablet 325 mg, 1, tablet, By Mouth, 2 times a day, # 60 tablet, Refills 3, Tot. Refills 3, Maintenance, 04/12/19 15:53:35 EDT, Route to Pharmacy Electronically, [id number], [id number] Start Date: 04/12/19 Stop Date: 08/10/19 Status: Ordered Loestrin 07/19 20 mcg-1 mg oral tablet 1 tablet, By Mouth, Daily, # 28 tablet, 3 Refills, Maintenance, 09/19/20 20:26:00 EDT, Tablet, [facility]/pharmacy #[id number], Partial fill upon patient request if the [...]
--- OUTSIDE RECORDS SUMMARY | 2024-02-18 06:13 | XMS_ITS | Continuity of Care Document ---
Author Organization [employer] [facility] Address [address] [facility], [address] [place] [address]- Care Team Providers Care Lead Software Engineer Name Role Phone Kaila Cordova DO Primary Care Diego gonzalez Encounter [facility] [place]CT R [id number] Date(s): 09/21/19 - [facility]01/[facility] [address] [place] [address]- Attending Physician: Sherrie Stewart Admitting Physician: AdmtrSherrie Referring Physician: AdmtrSherrie Allergies, Adverse Reactions, Alerts [...] 09/25/19 12:43:00 EDT, Route to Pharmacy Electronically, [facility]/pharmacy #[id number], 155, cm, 09/25/19 10:47:00 EDT, Height, 68.6,... Start Date: 09/25/19 Stop Date: 10/27/19 Status: Ordered docusate sodium 100 mg oral capsule 1 capsule = 100 mg, By Mouth, 2 times a day, # 60 capsule, 0 Refills, Maintenance, 09/25/19 12:43:00 EDT, Capsule, [facility]/pharmacy #[id number], 155, cm, 09/25/19 10:47:00 EDT, Height, 68.6, kg, 09/21/19 18:39:00 EDT, Dry Weight Start Date: 09/25/19 Status: Ordered ferrous sulfate 325 mg oral enteric coated tablet 325 mg, 1, tablet, By Mouth, 2 times a day, # 60 tablet, Refills 3, Tot. Refills 3, Maintenance, 04/12/19 15:53:35 EDT, Route to Pharmacy Electronically, [id number], [facility]/pharmacy #[id number] Start Date: 04/12/19 Stop Date: 08/10/19 Status: Ordered ibuprofen 800 mg oral tablet 800 mg, 1, tablet, By Mouth, Every 8 hours, not to exceed 3200 mg/day with food or milk, # 40 tablet, Refills 0, Tot. Refills 0, Acute 10/27/19 12:44:00 EDT, 09/25/19 12:43:00 EDT, Route to Pharmacy Electronically, [facility]/pharmacy #[id number], 155, cm, 09/24/... Start Date: 09/25/19 Stop Date: 10/27/19 Status: Ordered oxyCODONE 5 mg oral tablet 5 mg, 1, tablet, By Mouth, Every 6 hours, PRN, # 10 tablet, Refills 0, Tot. Refills 0, Acute 10/27/19 12:43:00 EDT, Pain , Severe, 09/25/19 12:43:00 EDT, Route to Pharmacy Electronically, [facility]/pharmacy #[id number], Partial fill upon patient request, 155, [...] 09/25/19 12:43:00 EDT, Route to Pharmacy Electronically, [facility]/pharmacy #[id number], 155, cm, 09/25/19 10:47:00 EDT, [...]
--- OUTSIDE RECORDS SUMMARY | 2024-02-18 06:13 | XMS_ITS | Continuity of Care Document ---
Author Organization [facility] Address [address] [place] [address]- Care Team Providers Care Inspector Air Carrier Name Role Phone Kaila Cordova DO Primary Care Diego gonzalez [place] [facility] [place] [id number] Date(s): 08/09/19 - 09/19/19 [facility] [address] [place] [address]- [place] Attending Physician: Brittny Schaefer MD Admitting Physician: Brittny Schaefer MD Allergies, Adverse Reactions, Alerts Substance Reaction Severity Status NKA Active Immunizations Given and Recorded Vaccine Date Status Refusal Reason tetanus/diphtheria/pertussis, acel(Tdap) 1 08/06/19 Given influenza virus vaccine, inactivated 04/12/19 Give n influenza virus vaccine, inactivated 2 04/27/07 Gi gwen 1Result Comment: Given without difficulty. JENNA Masters 2Admin Note: manufact =[employer]i Medications ferrous sulfate 325 mg oral enteric coated tablet 325 mg, 1, tablet, By Mouth, 2 times a day, # 60 tablet, Refills 3, Tot. Refills 3, Maintenance, 04/12/19 15:53:35 EDT, Route to Pharmacy Electronically, [id number], [facility]/pharmacy #[id number] Start Date: 04/12/19 Stop Date: [...]
--- OUTSIDE RECORDS SUMMARY | 2024-02-18 06:13 | XMS_ITS | Continuity of Care Document ---
Author Organization [facility] Address [address] [place] [address]- Care Team Providers Care Resort Manager Name Role Phone Bailey FerrellmuraliKaila christensen DO Primary Care Diego gonzalez En[place] [facility] [place] Date(s): 10/01/19 - 10/11/[address] [address]- [facility] Attending Physician: AdmSherrie vidales Admitting Physician: AdmtrSherrie Referring Physician: AdmtrSherrie Allergies, [...] 09/25/19 12:43:00 EDT, Route to Pharmacy Electronically, [facility]/pharmacy #[id number], 155, cm, 09/25/19 10:47:00 EDT, Height, 68.6,... Start Date: 09/25/19 Stop Date: 10/27/19 Status: Ordered docusate sodium 100 mg oral capsule 1 capsule = 100 mg, By Mouth, 2 times a day, # 60 capsule, 0 Refills, Maintenance, 09/25/19 12:43:00 EDT, Capsule, [facility]/pharmacy #[id number], 155, cm, 09/25/19 10:47:00 EDT, Height, 68.6, kg, 09/21/19 18:39:00 EDT, Dry Weight Start Date: 09/25/19 Status: Ordered ferrous sulfate 325 mg oral enteric coated tablet 325 mg, 1, tablet, By Mouth, 2 times a day, # 60 tablet, Refills 3, Tot. Refills 3, Maintenance, 04/12/19 15:53:35 EDT, Route to Pharmacy Electronically, [id number], [facility]/pharmacy #[id number] Start Date: 04/12/19 Stop Date: 08/10/19 Status: Ordered ibuprofen 800 mg oral tablet 800 mg, 1, tablet, By Mouth, Every 8 hours, not to exceed 3200 mg/day with food or milk, # 40 tablet, Refills 0, Tot. Refills 0, Acute 10/27/19 12:44:00 EDT, 09/25/19 12:43:00 EDT, Route to Pharmacy Electronically, [facility]/pharmacy #[id number], 155, cm, 09/24/... Start Date: 09/25/19 Stop Date: 10/27/19 Status: Ordered oxyCODONE 5 mg oral tablet 5 mg, 1, tablet, By Mouth, Every 6 hours, PRN, # 10 tablet, Refills 0, Tot. Refills 0, Acute 10/27/19 12:43:00 EDT, Pain , Severe, 09/25/19 12:43:00 EDT, Route to Pharmacy Electronically, [facility]/pharmacy #[id number], Partial fill upon patient request, 155, [...] 09/25/19 12:43:00 EDT, Route to Pharmacy Electronically, [facility]/pharmacy #[id number], 155, cm, 09/25/19 10:47:00 EDT, Height, [...]
--- OUTSIDE RECORDS SUMMARY | 2024-02-18 06:13 | XMS_ITS | Continuity of Care Document ---
Author Organization [facility] Address [address] [facility], [address] [place] [address]- Care Team Providers Care Employment Consultant Name Role Phone Kaila Cordova DO Primary Care Diego gonzalez [place] [facility] [place] Date(s): 07/16/19 - 07/23/19 [facility] [facility] [address] [facility], [address]th [place] [address]- Attending Physician: Tiera REYES, Ricardo Vogt Referring [...] 04/12/19 15:53:35 EDT, Route to Pharmacy Electronically, [id number], [facility]/pharmacy #[id number] Start Date: 04/12/19 Stop Date: [...]
--- OUTSIDE RECORDS SUMMARY | 2024-02-18 06:13 | XMS_ITS | Continuity of Care Document ---
Author Organization [facility] Address Unknown Care Team Providers Care Framing Mill Operator Name Role Phone Kaila Cordova DO Primary Care Diego gonzalez Encounter [facility] Date(s): 04/10/21 - 05/10/21 [facility] Attending Physician: Sherrie Stewart Admitting Physician: AdmSherrie vidales Referring Physician: Admtr, Sherrie Allergies, Adverse Reactions, Alerts Substance Reaction Severity [...] Refills, Maintenance, 09/25/19 12:43:00 EDT, Capsule, [facility], 155, cm, 09/25/19 10:47:00 EDT, Height, 68.6, kg, 09/21/19 18:39:00 EDT, Dry Weight Start Date: 09/25/19 Status: Ordered ferrous sulfate 325 mg oral enteric coated tablet 325 mg, 1, tablet, By Mouth, 2 times a day, # 60 tablet, Refills 3, Tot. Refills 3, Maintenance, 04/12/19 15:53:35 EDT, Route to Pharmacy Electronically, [id number], [facility] Start Date: 04/12/19 Stop Date: 08/10/19 Status: Ordered Loestrin 07/19 20 mcg-1 mg oral tablet 1 tablet, By Mouth, Daily, # 28 tablet, 11 Refills, Maintenance, 04/23/21 17:25:00 EDT, Tablet, [facility]/pharmacy #[id number], Partial fill upon patient request if the [...]
--- OUTSIDE RECORDS SUMMARY | 2024-02-18 06:13 | XMS_ITS | Continuity of Care Document ---
Author Organization [facility] Address [address] [address]- Care Team Providers Care Branch Officer Name Role Phone Kaila Cordova DO Primary Care Diego gonzalez [place] [facility] [place] Date(s): 08/18/19 - 08/28/19 [facility] [address] [address]- [facility] Attending Physician: Sherrie Stewart Admitting Physician: Sherrie [...] 04/12/19 15:53:35 EDT, Route to Pharmacy Electronically, [id number], [facility]/pharmacy #[id number] Start Date: 04/12/19 Stop Date: 08/10/19 Status: [...]
--- OUTSIDE RECORDS SUMMARY | 2024-02-18 06:13 | XMS_ITS | Continuity of Care Document ---
Author Organization [facility] Address [address] [address]- Care Team Providers Care Drywall Installer Name Role Phone Bailey katfederico Kaila Primary Care Diego gonzalez En[place] [facility] [place] Date(s): 09/19/20 - 10/19/20 [facility] [address] [address]- Attending Physician: Sherrie Stewart Admitting Physician: AdmSherrie [...] 04/12/19 15:53:35 EDT, Route to Pharmacy Electronically, [id number], [id number] Start Date: 04/12/19 Stop Date: 08/10/19 Status: Ordered Loestrin 21 07/19 20 mcg-1 mg oral tablet 1 tablet, By Mouth, Daily, # 28 tablet, 3 Refills, Maintenance, 09/19/20 20:26:00 EDT, Tablet, [facility]/pharmacy #[id number], Partial fill upon patient request if [...]
--- OUTSIDE RECORDS SUMMARY | 2024-02-18 06:13 | XMS_ITS | Continuity of Care Document ---
Author Organization [facility] Address [address] [facility]. [address] [place] [address]- Care Team Providers Care Support Director Name Role Phone Kaila Cordova DO Primary Care Diego gonzalez [place] [facility] [place]03[place] - 10[facility]17/19 [facility] [address] [address]- [facility] Attending Physician: Not on Staff, Attending MD [...] 12:43:00 EDT, Route to Pharmacy Electronically, [id number], 155, cm, 09/25/19 10:47:00 EDT, [...] 04/12/19 15:53:35 EDT, Route to Pharmacy Electronically, [id number], [facility]/pharmacy #[id number] Start Date: 04/12/19 Stop Date: 08/10/19 Status: Ordered ibuprofen 800 mg oral tablet 800 mg, 1, tablet, By Mouth, Every 8 hours, not to exceed 3200 mg/day with food or milk, # 40 tablet, Refills 0, Tot. Refills 0, Acute 10/27/19 12:44:00 EDT, 09/25/19 12:43:00 EDT, [id number], cm, 09/24/... Start Date: 09/25/19 Stop Date: 10/27/19 Status: Ordered oxyCODONE 5 mg oral tablet 5 mg, 1, tablet, By Mouth, Every 6 hours, PRN, # 10 tablet, Refills 0, Tot. Refills 0, Acute 10/27/19 12:43:00 EDT, Pain , Severe, 09/25/19 12:43:00 EDT, [id number], Partial fill upon patient [...] 12:43:00 EDT, Route to [facility] Electronically, [id number], 155, cm, 09/25/19 10:47:00 EDT, [...]
== END 2024-02-12 12:50 | disposition home or self-care (01) ==
PROVIDERS: Visit Provider Registered Nurse
DX: H10.33 Unspecified acute conjunctivitis, bilateral (principal)
CPT/HCPCS: 99213

== ENCOUNTER 2025-06-02 09:41 | Outpatient (REF) | payer BC, SELFPAY ==
--- OUTSIDE RECORDS SUMMARY | 2025-06-02 13:07 | XMS_ITS | Clinical Summary ---
Author Organization [facility] [address] [place] [address] [place] [phone] Phone Care Team Providers Care Criminal Justice Professor Name Role Phone Claudia Holley MD Primary Care Prov ider Allergies No known active allergies Medications ketoconazole 1 % shampoo Apply daily to hair and wash with water afterwards for 1-2 weeks. 4 Active metroNIDAZOLE (METROGEL) 0.75 % gel Apply to face in a thin layer twice daily after washing 2 Active pantoprazole (PROTONIX) 40 mg EC tablet Take 1 tablet (40 mg total) by mouth 1 (one) time each day. 90 each 1 5 Active Active Problems Problem Noted Date Diagnosed Date Overweight (BMI 25.0-29.9) 04/06/2024 Achalasia 12/10/2017 GERD (gastroesophageal reflux disease) 7 Overview (07/02/2024): Secondary to gaping GE junction as a result of peroral endoscopic myotomy (POEM) for achalasia 02/2015 Rosacea 10/19/2014 Anxiety 01/13/2012 Encounters Date Type Department Care Team Description 05/03/2025 8:13 AM EST - 05/03/2025 11:59 PM EST Hospital Encounter ABDIEL Jay [address] [place] [phone] Chronic right shoulder pain Discharge Disposition: Home or Self Care 05/03/2025 7:30 AM EST Office Visit Adult Medicine [address] [phone] Isabella Smith PA Routine general medical examination at a health care facility (Primary Dx); Chronic right shoulder pain; Encounter for screening mammogram for malignant neoplasm of breast; Screening for cardiovascular condition; Encounter for screening involving social determinants of health (SDoH); Screening for depression 05/03/2025 Results Follow-Up Adult [address] [phone] Isabella Smith PA from Last 3 Months Immunizations Immunization Administration Dates Next Due Influenza trivalent, 0.5mL, preservative free (Fluarix; FluLaval; Fluzone) ages 6mo and older (Afluria) 3 years and older 04/12/2019 Influenza trivalent, with pr eservative (Fluzone; Afluria) 6mo and older 04/27/2007 Tdap Tetanus diptheria acell ular pertussis (Boostrix; Adacel) 7yo and older 04/29/2022,08/06/2019,09/25/2006 Surgical History Surgery Date Site/Laterality Comments SECTION PROCEDURE: SECTION CHOLECYSTECTOMY PROCEDURE:CHOLECYSTECTOMY ERCP W/ SPHICTEROTOMY 12/10/2007 PROCEDURE: MD ERCP DX COLLECTION SPECIMEN BRUSHING/WASHING; COMMENT: CBD stone, removed. sphincterotomy. SECTION PROCEDURE: HISTORICAL ; COMMENT: x 2 ESOPHAGOGASTRODUODENOSCOPY 02/28/2015 - 03/29/2015 PROCEDURE: ---- OTHER ----; COMMENT: peroral endoscopic myotomy for achalasia ESOPHAGOGASTRODUODENOSCOPY 02/15/2021 PROCEDURE: MD ESOPHAGOGASTRODUODENOSCOPY TRANSORAL DIAGNOSTIC Medical History Medical History Date Comments Anxiety DX:Anxiety Achalasia 02/2015 DX:Achalasia; CO MMENT: S/p POEM procedure with Desilets at [facility]. Residual esophageal weakness and chronic heartburn Anxiety 01/13/2012 DX:Anxiety Rosacea 10/19/2014 DX:Rosacea History of endoscopy 04/02/2016 DX:History of endoscopy; COMMENT: w/ dilittion. 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 seizures afte r stroke No Known Problems Maternal Grandfather No Known Problems Maternal Grandmother Diabetes Mother Hypertension Mother No Known Problems Paternal Grandfather No Known Problems Paternal Grandmother No Known Problems Sister No Known Problems Son 1 Jose : 2007 No Known Problems Son 2 Milton DOD: 2019 Breast cancer Neg Hx Colon cancer Neg Hx Heart attack Neg Hx Ovarian cancer Neg Hx Relation Name Status Comments Brother 1 Alive Brother 2 Alive Father Alive Maternal Grandfather Maternal Grandmother Mother Paternal Grandfather Paternal Grandmother Sister Alive Son 1 Jose Alive Son 2 Milton Alive Social History Tobacco Use Types Packs/Day Years Used Date Smoking Tobacco: Never Smokeless Tobacco: Never Tobacco Cessation:Counseling Given: Not Answered Alcohol Use Standard Drinks/Week Comments No 0 (1 standard drink = 0.6 oz pur e alcohol) Housing Instability Answer Date Recorde d Are you worried that in the next 2 months you may not have stable housing? No 05/03/2025 Food Access & Nutrition Answer Date Rec orded Do you have access to a vari ety of food including fruits and vegetables? Yes 05/03/2025 Health Literacy Answer Date Recorded How often do you need to hav e someone help you when you read instructions, pamphlets, or other written material from your doctor or pharmacy? Never 05/03/2025 Caregiver: How often do you need to have someone help you when you read instructions, pamphlets, or other written material from your doctor or pharmacy? Not on file 05/03/2025 Financial Risk Answer Date Recorded How hard is it for you to pa y for the very basics like food, housing, medical care, and air conditioning / heating? Not very hard 05/03/2025 Transportation Answer Date Recorded Has the lack of transportati on kept you from meetings, work, or from getting things needed for daily living? No Has the lack of transportati on kept you from medical appointments or from getting medications? No 05/03/2025 Social Isolation Answer Date Recorded How often do you feel lonely or isolated from th ose around you? Never 05/03/2025 Food Risk Answer Date Recorded Within the past 12 months we worried whether our food would run out before we got money to buy more. Never true 05/03/2025 Within the past 12 months th e food we bought just didn't last and we didn't have money to get more. Never true 05/03/2025 Dependent Care Answer Date Recorded Do you need help finding or paying for care for your loved ones. For example, director of child welfare services or elderly care for an older adult? No 05/03/2025 Education Answer Date Recorded Do you think completing more education or training, like finishing a GED, going to college, or learning a trade, would be helpful for you? No 05/03/2025 Employment and Income Answer Date Recor ded During the last four weeks, have you been actively looking for work? No 05/03/2025 Living Situation Answer Date Recorded What is your living situation? Unrecognized valu e 05/03/2025 Comments No Sex and Gender Information Value Date Recorded Sex Assigned at Not on file Legal Sex Female 5:08 AM EST Gender Identity Not on file Sexual Orientation Not on file Obstetrics History Para Term AB IAB SAB Ectopic Multiple Livin g Live Births 2 2 2 2 Date Outcome GA Total Labor Labor/2nd/3rd Weight Sex Type Anes PTL Darlin A1 A5 Name Clin Term Term Last Filed Vital Signs Vital Sign Reading Time Taken Comments Blood Pressure 124/78 05/03/2025 7:30 AM EST Pulse 73 05/03/2025 7:30 AM EST Temperature 35.8 C (96.5 F) 05/03/2025 7:30 AM EST Respiratory Rate 12 05/03/2025 7:30 AM EST Oxygen Saturation 97% 05/03/2025 7:30 AM EST Inhaled Oxygen Concentration - - Weight 63 kg (138 lb 12.8 oz) 05/03/2025 7:30 AM EST Height 154.9 cm (5' 1 ) 05/03/2025 7:30 AM EST Body Mass Index 26.23 05/03/2025 7:30 AM EST Plan of Treatment Upcoming Encounters Date Type Department Care Team ([facility] st Contact Info) Description 07/02/2025 12:50 PM EST Appointment Radiology Department [address] [phone] Health Maintenance Due Date Last Done Comments Cervical Cancer Screening: Pap Smear 04/29/2024 04/29/2021 Breast Cancer Screening 06/26/2025 06/26/20 24, 05/24/2023, 04/17/2022, Additional history exists Influenza Vaccine (#1) 2025 04/12/2019, 2006 Postponed from 02/28/2025 (Patient Refused) Social Influencers of Health Screening 05/03/2026 05/03/2025 Cholesterol Screening (Lipid Panel) 04/06/2029 04/06/2024, 04/06/2024 DTaP,Tdap,and Td Vaccines (4 - Td or Tdap) 04/29/2032 04/29/2022, 08/06/2019, 09/25/2006 RSV Immunization Adult Patients (1 - 1-dose 75+ series) 10/30/2055 HIV Screening Completed 08/07/2018 Hepatitis C Screening Completed 08/07/2018 Depression Screening Completed 05/03/2025, 04/06/20 COVID-19 Vaccine Discontinued HIB Vaccines Aged Out No longer eligi ble based on patient's age to complete this topic HPV Vaccines Discontinued Hepatitis A Vaccines Aged Out No long er eligible based on patient's age to complete this topic Hepatitis B Vaccines Discontinued IPV Vaccines Aged Out No longer eligi ble based on patient's age to complete this topic MMR Vaccines Aged Out No longer eligi ble based on patient's age to complete this topic Meningococcal ACWY Vaccine Aged Out N o longer eligible based on patient's age to complete this topic Meningococcal B Vaccine Aged Out No l onger eligible based on patient's age to complete this topic Pneumococcal Vaccine: Pediatrics (0 to 5 Years) and At-Risk Patients (6 to 49 Years) Aged Out No longer eligible based on patient's age to complete this topic RSV Immunization Patients Under 20 months Aged Out No longer eligible based on patient's age to complete this topic Varicella Vaccines Aged Out No longer eligible based on patient's age to complete this topic Procedures Procedure Name Priority Date/Time Associated Diagnosis Comments XR SHOULDER 2+ VIEWS RIGHT Routine 05/03/2025 8:24 AM EST Chronic right shoulder pain MG MAMMO DIGITAL SCREENING W CYRUS BILAT Routine 06/26/2024 11:24 AM EST Encounter for screening mammogram for breast cancer DEPRESSION SCREENING Routine 04/06/2024 LIPID PANEL Routine 04/06/2024 PAP SMEAR Routine 04/29/2021 HEPATITIS C SCREENING Routine 08/07/2018 HIV SCREENING Routine 08/07/2018 from Last 3 Months or Most Recently Relevant to Health Maintenance Results * XR Shoulder 2+ Views Right (05/03/2025 8:24 AM EST) Anatomical Region Laterality Modality Upper Extremities, Shoulder Right Radi ographic Imaging 05/03/2025 11:0 9 AM EST Impressions 05/03/2025 11:11 AM EST No clear source of pain identified. -------- FINAL REPORT -------- Dictated By: Sandra Pacheco Dictated Date: 05/03/2025 11:09 ET Assigned Physician: Sandra Pacheco Reviewed and Electronically Signed By: Sandra Pacheco Signed Date: 05/03/2025 11:11 ET Workstation ID: [id number] Transcribed By: Self Edit Transcribed Date: 05/03/2025 11:09 ET Narrative 05/03/2025 11:11 AM EST EXAM: Right shoulder x-ray HISTORY: Chronic right shoulder pain. COMPARISON: None FINDINGS: 4 views performed. No appreciable degenerative changes at the acromioclavicular and glenohumeral joints. No acute fracture or dislocation detected. No destructive bone lesion. No soft tissue calcifications. Procedure Note Sandra Pacheco MD - 05/03/2025 EXAM: Right shoulder x-ray HISTORY: Chronic right shoulder pain. COMPARISON: None FINDINGS: 4 views performed. No appreciable degenerative changes at the acromioclavicular andglenohumeral joints. No acute fracture or dislocation detected. Nodestructive bone lesion. No soft tissue calcifications. IMPRESSION: No clear source of pain identified. -------- FINAL REPORT -------- Dictated By: Sandra Pacheco Dictated Date: 05/03/2025 11:09 ET Assigned Physician: Sandra Pacheco Reviewed and Electronically Signed By: Sandra Pacheco Signed Date: 05/03/2025 11:11 ET Workstation ID: [id number] Transcribed By: Self Edit Transcribed Date: 05/03/2025 11:09 ET us Isabella ORTIZ IMG XR PROCEDURES Final Result * MG Mammo Digital Screening w Cyrus bilat (06/26/2024 11:24 AM EST) Anatomical Region Laterality Modality Breast Bilateral Mammography 06/28/2024 8:44 PM EST Impressions 06/28/2024 8:45 PM EST No mammographic evidence of malignancy. BREAST DENSITY: C - The breasts are heterogeneously dense which may obscure small masses. BI-RADS CATEGORY: 1 - NEGATIVE RECOMMENDATION: Screening bilateral mammogram is recommended in 1 year. MAMMO LOCATION: [facility], [address] [place] [address], [id number], . -------- FINAL REPORT -------- Dictated By: Sandra Pacheco Dictated Date: 06/28/2024 20:44 ET Assigned Physician: Sandra Pacheco Reviewed and Electronically Signed By: Sandra Pacheco Signed Date: 06/28/2024 20:45 ET Workstation ID: [id number] Transcribed By: Self Edit Transcribed Date: 06/28/2024 20:44 ET Narrative 06/28/2024 8:45 PM EST EXAM: Screening Mammogram CLINICAL: 43 years old, Female, routine annual exam. COMPARISON: 05/24/2023 and 03/30/2022 TECHNIQUE: Bilateral MLO and CC views were obtained digitally with 3-D mammogram (digital breast tomosynthesis). Computer-aided detection was utilized in evaluation of this exam (CAD). FINDINGS: No new suspicious mass, architectural distortion, or suspicious calcifications. Procedure Note Sandra Pacheco MD - 06/28/2024 EXAM: Screening Mammogram CLINICAL: 43 years old, Female, routine annual exam. COMPARISON: 05/24/2023 and 03/30/2022 TECHNIQUE: Bilateral MLO and CC views were obtained digitally with 3-Dmammogram (digital breast tomosynthesis). Computer-aided detection wasutilized in evaluation of this exam (CAD). FINDINGS: No new suspicious mass, architectural distortion, or suspiciouscalcifications. IMPRESSION: No mammographic evidence of malignancy. BREAST DENSITY: C - The breasts are heterogeneously dense which mayobscure small masses. BI-RADS CATEGORY: 1 - NEGATIVE RECOMMENDATION: Screening bilateral mammogram is recommended in 1 year. MAMMO LOCATION: [facility], [address] [place] [address], [id number], . -------- FINAL REPORT -------- Dictated By: Sandra Pacheco Dictated Date: 06/28/2024 20:44 ET Assigned Physician: Sandra Pacheco Reviewed and Electronically Signed By: Sandra Pacheco Signed Date: 06/28/2024 20:45 ET Workstation ID: [id number] Transcribed By: Self Edit Transcribed Date: 06/28/2024 20:44 ET Result [facility] Claudia Holley MD IMG BI PROCEDURES Final Result * Depression Screening (04/06/2024) Pathologist [facility] Depression Screening ABSTRACTED Result [facility] Provider HEALTH MAINTENANCE Final Result * (ABNORMAL) Lipid panel (04/06/2024) [facility] LDL/HDL Ratio 4 0 - 4 Triglycerides 115 0 - 150 mg/dL Cholesterol 131 0 - 200 mg/dL HDL 37(A) >=40 mg/dL LDL Cholesterol 71 0 - 100 mg/dL Blood Venous blood specimen / Unknown Result [facility] Historical Provider LAB BLOOD ORDERABLES Mary l Result * Pap Smear (04/29/2021) Pathologist [facility] Pap smear no interpretation , abstracted Result [facility] Historical Provider HEALTH MAINTENANCE Final Result * HIV Screening (08/07/2018) HIV Screening ABSTRACTED Historical Provider HEALTH MAINTENANCE Final Result * Hepatitis C Screening (08/07/2018) Hepatitis C Screening ABSTRACTED Historical Provider HEALTH MAINTENANCE Final Result from Last 3 Months or Most Recently Relevant to Health Maintenance Insurance [facility] Care Teams Criminal Justice Professor Relationship Specialty Start Date End Date Claudia Holley MD [address] [place] [phone] PCP - General Internal Medicine 01/28/22
--- OUTSIDE RECORDS SUMMARY | 2025-06-02 13:07 | XMS_ITS | Encounter Summary ---
Author Organization [facility] Address [address] [place] [address] Care Team Providers Care Product Development Specialist Name Role Phone Claudia Holley MD Primary Care Prov ider Encounter Details Date Type Department Care Team (Late st Contact Info) Description 05/03/2025 Results Follow-Up Adult Medicine [facility] [address] [place], [place] [phone] Isabella Smith PA [address] [place], [place] Social History Tobacco Use Types Packs/Day Years Used Date Smoking Tobacco: Never Smokeless Tobacco: Never Alcohol Use Standard Drinks/Week Comments No 0 [...] care for your loved ones. For example, child caregiver or elderly care for an older adult? [...] on file Sexual Orientation Not on file documented as of this encounter Plan of Treatment Upcoming Encounters Date Type Department Care Team (Late st Contact Info) Description 07/02/2025 12:50 PM EST Appointment Radiology Department - [address] [phone] documented as of this encounter Visit Diagnoses Not on filedocumented in this encounter Additional Health Concerns Assessment Noted Time PHQ-9 Depression Total Score: 0 05/03/20 25 7:30 AM EST documented as of this encounter Care Teams Product Development Specialist Relationship Specialty Start Date End Date Claudia Holley MD [address] [place] [address] PCP - General Internal Medicine 01/28/22 documented as of this encounter
--- OUTSIDE RECORDS SUMMARY | 2025-06-02 13:08 | XMS_ITS ---
Author Name [facility] Organization Unknown Care Team Organization Name Specialty Phone Email Start Date End Da te [facility] 05/07/2022 02/16/2024
--- OUTSIDE RECORDS SUMMARY | 2025-06-02 13:08 | XMS_ITS | Clinical Summary ---
Author Organization [facility] Prior to 11/27/24 Address [address] [place] [address] Care Team Providers Care Inspector Fibrous Wallboard Name Role Phone Claudia Fuentes MD Primary Care Prov ider Allergies No known active allergies Medications Medication Sig Dispensed Refills Start Date End Date Status KETOCONAZOLE, TOPICAL, 1 % SHAM Apply topically. 0 A ctive pantoprazole (Protonix) 40 MG tablet Take 1 tablet (40 mg total) by mouth every morning on an empty stomach. 0 Active nabumetone (RELAFEN) 750 MG tablet Take 1 tablet (750 mg total) by mouth 2 (two) times a day as needed for pain. 0 Active metroNIDAZOLE (METROGEL) 0.75 % gel Apply topically 2 (two) times a day. 0 Active Family History Medical History Relation Name Comments Stroke Father Relation Name Status Comments Father Social History Tobacco Use Types Packs/Day Years Used Date Smoking Tobacco: Never Smokeless Tobacco: Never Tobacco Cessation:Counseling Given: Not Answered Alcohol Use Standard Drinks/Week Comments Never 0 (1 standard drink = 0.6 oz pur e alcohol) Sex and Gender Information Value Date Recorded Sex Assigned at Not on file Gender Identity Not on file Sexual Orientation Not on file Job Start Date Occupation Industry Not on file Not on file Not on file Last Filed Vital Signs Vital Sign Reading Time Taken Comments Blood Pressure 120/80 03/21/2023 3:42 PM EDT Pulse 80 03/21/2023 3:42 PM EDT Temperature 36.2 C (97.2 F) 03/21/2023 3:42 PM EDT Respiratory Rate - - Oxygen Saturation 98% 03/21/2023 3:42 PM EDT Inhaled Oxygen Concentration - - Weight 62.2 kg (137 lb 3.2 oz) 03/21/2023 3:42 P M EDT Height 152.4 cm (5') 03/21/2023 3:42 PM EDT Body Mass Index 26.8 03/21/2023 3:42 PM EDT Plan of Treatment Health Maintenance Due Date Last Done Comments Hepatitis B Vaccines (1 of 3 - 3-dose series) 1980 Hepatitis C Screening 1980 COVID-19 Vaccine (#1) 05/01/1981 Depression Screening 1992 Preventative Health Evaluation 1998 Cervical Cancer Screening (Pap Smear) 2001 Influenza Vaccine (#1) 2025 9, 04/27/2007 DTap / Tdap / Td (4 - Td or Tdap) 04/29/2032 04/29/2022, 08/06/2019, 09/25/2006 Pneumococcal Vaccine Aged Out No long er eligible based on patient's age to complete this topic RSV Ped < 20 months Aged Out No longe r eligible based on patient's age to complete this topic Care Teams Inspector Fibrous Wallboard Relationship Specialty Start Date End Date Claudia Fuentes MD [address] [place] [address] PCP - General Internal Medicine 12/26/22
[2025-06-02 13:24] LABS: Appearance Urine Clear; Glucose Urine UA Negative (Negative); PH 6.5 (5.0-9.0); Specific Gravity - Urine 1.010 (1.005-1.025)
[2025-06-02 14:51] LABS: Bacterial Vaginosis PCR NEGATIVE (Negative); Candida Group PCR NOT DETECTED (Not Detect); Candida glab krusei PCR NOT DETECTED (Not Detect); Trichomonas vaginalis PCR NOT DETECTED (Not Detect)
== END 2025-06-02 09:42 | disposition home or self-care (01) ==
LOC: HO.LAB 09:41
PROVIDERS: Visit Provider Nurse Practitioner Family
DX: N76.0 Acute vaginitis (principal); Z13.89 Encounter for screening for other disorder
CPT/HCPCS: 81003; 81515

== ENCOUNTER 2025-06-02 09:41 | Outpatient (AMB) | payer BC, SELFPAY ==
[2025-06-02 09:44] VITALS: BP 110/72; PULSE 76; TEMP 36.6; O2SAT 100; BMI 26.9
--- NOTE | 2025-06-02 09:44 | AM.OFFWIN_ITS ---
Intake Vital Signs 06/02/25 09:44 Height 5 ft Weight 138 lb BMI 26.9 BP 110/72 Blood Pressure Location Lt brachial Position Sitting Pulse 76 Pulse Source Pulse Oximeter Temp 97.9 F Temp Source Oral Pulse Oximetry (%) 100 Oxygen Delivery Method Room Air Intake Visit Reasons: EP Possible UTI Intake Note: pt presents with vaginal discharge, low back pain, strong urine smell, urine urgency with little output for a week Patient Tobacco Use Status: Never used Tobacco Allergies No Known Allergies Allergy (Verified 06/02/25 09:51) Do you need a note to return to daycare/school/sports/work: No HPI HPI Comments History of Present Illness Details 44 y/o female patient presents to the in lk-in clinic with 1 week of urinary symptoms. She reports lower abdominal/pelvic pain associated with urinary frequency and urgency. She also reports vaginal discharge described as thin and white without odor. She denies sexual activity; no concerns for or STIs. Denies nausea, vomiting, fevers, chills, constipation, or diarrhea. [facility] Medical History (Updated 06/02/25 @ 10:33 by Leslie Kahn NP) Vaginitis and vulvovaginitis Social History Patient Tobacco Use Status: Never used Tobacco Physical Exam Vital Signs: Last Vital Signs Temp 97.9 F 06/02/25 09:44 Pulse 76 06/02/25 09:44 BP 110/72 06/02/25 09:44 Pulse Ox 100 06/02/25 09:44 Oxygen Delivery Method Room Air 06/02/25 09:44 BMI result Body Mass Index 26.9 Const General: no acute distress and well developed Nutritional Appearance: well nourished Orientation/consciousness: patient oriented x3 GI Inspection: Yes normal to inspection Palpation (GI): Soft to palpation, not firm, Tenderness to palpation present (GI) suprapubicly, no guarding and not rigid Auscultation: normal bowel sounds External Female Exam: normal appearance of the urethra Speculum Exam - Vagina: normal palpation and normal vaginal discharge Speculum Exam - Cervix: normal appearance of the cervix, Cervical os open, no lesions and nontender Bimanual exam- vagina & uterus: normal palpation, uterine size normal, No Cervical tenderness present and no cervical motion tenderness OB/external & speculum: Cervical os open Neuro General: patient oriented x3 Results AMB Urinalysis, Automated UA Leukoctes 0 Beryl/uL Last Edit by Ana Hobbs CMA on 06/02/25 10:08 UA Nitrite Negative Last Edit by Ana Hobbs, SATINDER on 06/02/25 10:08 UA Urobilinogen 0.2 mg/dL Last Edit by Ana Hobbs CMA on 06/02/25 10:0 8 UA Protein 0 mg/dL Last Edit by Ana Hobbs, SATINDER on 06/02/25 10:08 UA pH 6.0 Last Edit by Ana Hobbs, SATINDER on 06/02/25 10:08 UA Blood 0 [place]/uL Last Edit by Ana Hobbs, SATINDER on 06/02/25 10:08 UA Specific [place] 1.010 Last Edit by Ana Hobbs, SATINDER on 06/02/25 10: 08 UA Ketone Negative Last Edit by Ana Hobbs, SATINDER on 06/02/25 10:08 UA Bilirubin 0 mg/dL Last Edit by Ana Hobbs, SATINDER on 06/02/25 10:08 UA Glucose 0 mg/dL Last Edit by Ana Hobbs CMA on 06/02/25 10:08 Results Reviewed Results Reviewed: Laboratory Last Values Urine pH (Auto) 6.0 06/02/25 10:05 Specific [place] (Auto) 1.010 06/02/25 10:05 Urine Protein (Auto) 0 mg/dL 06/02/25 10:05 Glucose (UA)(Auto) 0 mg/dL 06/02/25 10:05 Urine Ketones (Auto) Negative 06/02/25 10:05 Urine Blood (Auto) 0 [place]/uL 06/02/25 10:05 Urine Nitrite (Auto) Negative 06/02/25 10:05 Urine Bilirubin (Auto) 0 mg/dL 06/02/25 10:05 Urine Urobilinogen (Auto) 0.2 mg/dL 06/02/25 10:05 Leukocyte Esterase (Auto) 0 Beryl/uL 06/02/25 10:05 Assessment & Plan Assessment & Plan (1) Vaginitis and vulvovaginitis: Code(s): N76.0 - Acute vaginitis Plan: Vaginal Discharge ? Thin/white, non-odorous; clinical picture suggests physiologic discharge vs mild vaginitis; low concern for STI given no sexual activity. Urinalysis negative. Will still send Urine for C&S. Ordered Vaginal swab for BV/Fungal. Will hold Tx until results. Advised the use Of OTC AZO for symptom relief. Orders: Orders UA CC w/rflx Micro + Cult Today N76.0 - Acute vaginitis AMB Urinalysis Automated Today Z13.9 - Encounter for screening, unspecified Bacterial Vaginosis Panel Today N76.0 - Acute vaginitis Coding Level of Care Code Est Pt Level 4 (71173) Diagnoses Vaginitis and vulvovaginitis N76.0 Time Spent (min) 20
== END 2025-06-02 10:44 | disposition home or self-care (01) ==
PROVIDERS: Visit Provider Nurse Practitioner Family
DX: N76.0 Acute vaginitis (principal); Z13.9 Encounter for screening, unspecified